=== PATIENT | male | born 1950 | race Caucasian/White ===

== ENCOUNTER 2017-08-04 08:06 | Outpatient (CLI) | payer MEDICARE ==
--- NOTE | 2017-08-04 10:16 | Ultrasound Report ---
AORTA SCREEN: 08/04/2017 CLINICAL INDICATION: Screening. FINDINGS: The abdominal aorta is normal in caliber, measuring 2.2 cm proximally, 2.4 cm in the midportion, and 1.8 cm distally. The iliacs are normal in caliber. No free fluid is present. IMPRESSION: NO EVIDENCE OF ABDOMINAL AORTIC ANEURYSM. TD: 08/04/2017 10:15
== END 2017-08-04 08:07 | disposition home or self-care (01) ==
LOC: DI 08:06
PROVIDERS: ATTEND Family Medicine
DX: Z13.6 Encounter for screening for cardiovascular disorders (principal); R93.1 Abnormal findings on diagnostic imaging of heart and coronary circulation
CPT/HCPCS: 76706

== ENCOUNTER 2017-09-15 09:29 | Outpatient (CLI) | payer MEDICARE ==
--- NOTE | 2017-09-15 10:36 | XRAY Report ---
Procedure Date: 09/15/2017 Accession Number: [id number] / [id number] Procedure: XRS - Chest 2 View X-Ray CPT Code: 88536 FULL RESULT: EXAM: Chest 2 View X-Ray DATE: 09/15/2017 9:41 AM CLINICAL HISTORY: R SIDED CHEST PAIN P X 4WKS, 4TH COSTAL SPACE COMPARISON: 05/31/2014 TECHNIQUE: 2 view chest FINDINGS: The cardiac silhouette is within normal limits. Calcified granuloma in the left midlung is stable. No focal consolidation, effusion, or pneumothorax. IMPRESSION: Normal chest.
== END 2017-09-15 09:30 | disposition home or self-care (01) ==
LOC: DI.S 09:29
PROVIDERS: ATTEND Nurse Practitioner Family
DX: R07.89 Other chest pain (principal)
CPT/HCPCS: 71046

== ENCOUNTER 2020-10-30 11:49 | Outpatient (CLI) | payer MEDICARE, OTHER ==
--- NOTE | 2020-10-30 12:45 | XRAY Report ---
PROCEDURE: Foot 3 View RT INDICATIONS: PAIN OF TOE OF RIGHT FOOT TECHNIQUE: 3 views of the foot were acquired. COMPARISON: None FINDINGS: Bones: No fractures or dislocations. Mild to moderate osteoarthritic changes throughout forefoot mirian ints are seen more prominent at first interphalangeal joint. No gross bony erosive changes are seen. No suspicious bony lesions. Soft tissues: No tibiotalar joint effusion. Achilles tendon appears normal. IMPRESSION: Mild to moderate osteoarthritic changes in forefoot joints more prominent in great toe as above. No f racture or dislocation. No gross bony erosion. Reviewed by: Primo Ross MD on 10/30/2020 12:44 PM PDT Approved by: Primo Ross MD on 10/30/2020 12:44 PM PDT Station ID: [id number]
[2020-10-30 19:52] LABS: BASOPHILS # (AUTO) 0.1 10^3/uL (0.0-0.1); BASOPHILS % (AUTO) 0.5 %; EOSINOPHILS # (AUTO) 0.1 10^3/uL (0.0-0.7); HCT - HEMATOCRIT 36.5 % (42.0-52.0); HGB - HEMOGLOBIN 12.1 g/dL (14.0-18.0); LYMPHOCYTES # (AUTO) 4.9 10^3/uL (1.5-3.5); LYMPHOCYTES % (AUTO) 51.8 %; MEAN CORPUSCULAR HEMOGLOBIN 31.3 pg (27.0-31.0); MEAN CORPUSCULAR HGB CONC 33.2 g/dL (32.0-36.0); MEAN CORPUSCULAR VOLUME 94.6 fL (80.0-94.0); MEAN PLATELET VOLUME 11.3 fL (7.4-11.4); MONOCYTES # (AUTO) 0.6 10^3/uL (0.0-1.0); MONOCYTES % (AUTO) 6.4 %; NEUTROPHILS # (AUTO) 3.8 10^3/uL (1.5-6.6); PLT - PLATELET COUNT 244 10^3/uL (130-450); RED BLOOD COUNT 3.86 10^6/uL (4.70-6.10); RED CELL DISTRIBUTION WIDTH 13.6 % (12.0-15.0); WHITE BLOOD COUNT 9.4 x10^3/uL (4.8-10.8)
[2020-10-30 20:24] LABS: ALBUMIN 4.3 g/dL (3.2-5.5); ALBUMIN/GLOBULIN RATIO 1.8 (1.0-2.2); ALKALINE PHOSPHATASE 38 IU/L (42-121); ALT ALANINE AMINOTRANSFERASE 21 IU/L (10-60); AST ASPARTATE AMINOTRANSFERASE 23 IU/L (10-42); BILIRUBIN,TOTAL 0.9 mg/dL (0.2-1.0); BUN - BLOOD UREA NITROGEN 22 mg/dL (6-20); CALCIUM 9.4 mg/dL (8.5-10.3); CARBON DIOXIDE - CO2 25 mmol/L (21-32); CHLORIDE 103 mmol/L (101-111); CREATININE 0.8 mg/dL (0.6-1.2); CRP - C-REACTIVE PROTEIN < 1.0 mg/dL (0-1.0); GFR - MDRD 95 (>89); GLUCOSE 124 mg/dL (70-100); POTASSIUM 4.1 mmol/L (3.5-5.0); SODIUM 137 mmol/L (135-145); TOTAL PROTEIN 6.7 g/dL (6.7-8.2)
[2020-10-30 20:33] LABS: RHEUMATOID FACTOR NEGATIVE (Negative)
[2020-11-01 12:46] LABS: HEPATITIS C ANTIBODY NON-REACTIVE (NON-REACTIVE)
[2020-11-02 10:56] LABS: ANA SCREEN NEGATIVE (NEGATIVE)
== END 2020-10-30 11:50 | disposition home or self-care (01) ==
LOC: DI.S 11:49
PROVIDERS: ATTEND Nurse Practitioner Family
DX: M79.674 Pain in right toe(s) (principal); M19.071 Primary osteoarthritis, right ankle and foot
CPT/HCPCS: 36415; 80053; 84550; 85025; 85651; 86038; 86140; 86200; 86430; 86803

== ENCOUNTER 2021-01-01 07:11 | Outpatient (CLI) | payer MEDICARE, OTHER ==
--- NOTE | 2021-01-01 08:38 | XRAY Report ---
PROCEDURE: Shoulder 3 View LT INDICATIONS: PAIN OF LEFT SHOULDER JOINT TECHNIQUE: 3 views of the shoulder were acquired. COMPARISON: None. FINDINGS: Bones: No fractures or dislocations. No suspicious bony lesions. Visualized ribs appear intact. S cattered subchondral sclerosis and spurring. Soft tissues: No suspicious soft tissue calcifications. IMPRESSION: Mild degenerative changes. If the patient's pain or other symptoms persist, consider fur ther evaluation with MRI. Reviewed by: Raheem Haywood MD on 01/01/2021 8:36 AM PDT Approved by: Raheem Haywood MD on 01/01/2021 8:36 AM PDT Station ID: [id number]
== END 2021-01-01 07:12 | disposition home or self-care (01) ==
LOC: DI.S 07:11
PROVIDERS: ATTEND Nurse Practitioner Family
DX: M19.012 Primary osteoarthritis, left shoulder (principal)

== ENCOUNTER 2021-01-03 07:29 | Outpatient (CLI) | payer MEDICARE, OTHER ==
[2021-01-03 14:49] LABS: BASOPHILS % (AUTO) 0.5 %; EOSINOPHILS # (AUTO) 0.1 10^3/uL (0.0-0.7); EOSINOPHILS % (AUTO) 0.9 %; HCT - HEMATOCRIT 39.9 % (42.0-52.0); LYMPHOCYTES # (AUTO) 3.9 10^3/uL (1.5-3.5); LYMPHOCYTES % (AUTO) 50.7 %; MEAN CORPUSCULAR HEMOGLOBIN 30.7 pg (27.0-31.0); MEAN CORPUSCULAR HGB CONC 32.6 g/dL (32.0-36.0); MEAN CORPUSCULAR VOLUME 94.1 fL (80.0-94.0); MEAN PLATELET VOLUME 11.5 fL (7.4-11.4); MONOCYTES # (AUTO) 0.4 10^3/uL (0.0-1.0); NEUTROPHILS # (AUTO) 3.3 10^3/uL (1.5-6.6); NEUTROPHILS % (AUTO) 42.8 %; PLT - PLATELET COUNT 223 10^3/uL (130-450); RED BLOOD COUNT 4.24 10^6/uL (4.70-6.10); WHITE BLOOD COUNT 7.8 x10^3/uL (4.8-10.8)
[2021-01-03 15:02] LABS: PSA FREE 0.19 ng/mL (0.16-2.81); PSA TOTAL 1.11 ng/mL (0.000-2.000)
[2021-01-03 16:37] LABS: FOLATE > 49.60 ng/mL (5.90 - >24.8)
--- NOTE | 2021-01-03 16:49 | XRAY Report ---
PROCEDURE: Hip w/Pelvis 2-3V RT INDICATIONS: CONTUSION OF RIGHT HIP TECHNIQUE: AP pelvis with lateral view(s) of the bilateral hip(s). COMPARISON: None. FINDINGS: Bones: No fractures or dislocations. Pelvic ring appears intact. No suspicious bony lesions. Mild bilateral hip osteoarthritis. Soft tissues: The visualized bowel gas pattern is normal. No suspicious soft tissue calcifications. IMPRESSION: No fracture. No acute osseous lesion. If there persistent symptoms or continued clinical concern for pathology, then repeat plain film radiographs (7-10 days) or advanced imaging (CT, MR, bone scan) camila uld be considered for further evaluation. Reviewed by: Meri Gates MD, PhD on 01/03/2021 4:47 PM PDT Approved by: Meri Gates MD, PhD on 01/03/2021 4:47 PM PDT Station ID: [id number]
== END 2021-01-03 07:30 | disposition home or self-care (01) ==
LOC: LAB.S 07:29 → DI.S 07:30
PROVIDERS: ATTEND Nurse Practitioner Family
DX: M16.0 Bilateral primary osteoarthritis of hip (principal); N40.1 Benign prostatic hyperplasia with lower urinary tract symptoms; S70.01XA Contusion of right hip, initial encounter; D53.9 Nutritional anemia, unspecified
CPT/HCPCS: 36415; 82607; 82746; 84153; 84154; 85025

== ENCOUNTER 2021-01-15 10:05 | Outpatient (CLI) | payer MEDICARE, OTHER ==
--- NOTE | 2021-01-15 12:36 | MRI Report ---
PROCEDURE: Shoulder LT W/O INDICATIONS: LEFT SHOULDER PAIN TECHNIQUE: Noncontrast oblique coronal T2 fast spin echo with fat saturation, oblique sagittal T1 spin echo and T2 fast spin echo with fat saturation, axial T1 spin echo and T2 fast spin echo with fat saturation t hrough the shoulder. COMPARISON: None. FINDINGS: Image quality: Excellent. Rotator cuff: Tendinosis and low-grade articular and bursal surface partial-thickness tear involving distal supraspinatus at its insertion on humeral head is seen extending to musculotendinous junction. Distal infraspinatus tendinosis is seen. Distal subscapularis tendinosis is also noted. No full-thic kness rotator cuff tendon rupture. No significant rotator cuff muscle atrophy on sagittal images. Bones and bursae: No bone marrow contusions or fractures. Dicf-rr-dstarjeu acromioclavicular joint a nd glenohumeral joint osteoarthritic changes are seen. Small amount of subacromial subdeltoid bursal fluid is also seen. Capsule and soft tissues: There is fraying of superior anterior labrum at 1 to 2:00 position suggesti ve of superior anterior labral tear. Subtle signal abnormality involving anterior inferior labrum at 5 to 6:00 position is also seen. The glenohumeral ligaments are intact. The long head of the biceps t endon demonstrates normal location and morphology. The rotator interval appears normal, without fibr osis. The coracohumeral ligament is normal in thickness. IMPRESSION: 1. Tendinosis and low-grade articular and bursal surface partial-thickness tear involving distal supr aspinatus extending to musculotendinous junction. Distal infraspinatus and subscapularis tendinosis. No full-thickness rotator cuff tendon rupture. 2. Mild to moderate acromioclavicular joint and glenohumeral joint osteophyte is. Small amount of sub acromial subdeltoid bursal fluid. 3. Suggestion of subtle superior anterior labral tear at 1 to 2:00 position an anterior inferior labr al tear at 5 to 6:00 position. Reviewed by: Primo Ross MD on 01/15/2021 12:35 PM PDT Approved by: Primo Ross MD on 01/15/2021 12:35 PM PDT Station ID: [id number]
== END 2021-01-15 10:06 | disposition home or self-care (01) ==
LOC: DI 10:05
PROVIDERS: ATTEND Nurse Practitioner Family
DX: M75.112 Incomplete rotator cuff tear or rupture of left shoulder, not specified as traumatic (principal); M25.712 Osteophyte, left shoulder; M75.52 Bursitis of left shoulder; R93.6 Abnormal findings on diagnostic imaging of limbs

== ENCOUNTER 2021-09-25 08:00 | Outpatient (CLI) | payer MEDICARE, OTHER ==
--- NOTE | 2021-09-25 16:47 | XRAY Report ---
PROCEDURE: Cervical Spine 2 View INDICATIONS: CERVICALGIA TECHNIQUE: 2 view(s) of the cervical spine were acquired. COMPARISON: None. FINDINGS: Bones: No fractures or dislocations to the C7-T1 level. The lateral masses of C1 appear intact on t he odontoid view. No suspicious bony lesions. There is overall appearance of cervical straightening . Mild multilevel generative disc space narrowing is present. Uncovertebral arthropathy is present. Soft tissues: No prevertebral soft tissue swelling. IMPRESSION: Disc space narrowing as well as uncovertebral arthropathy as above. Reviewed by: Jody Cali MD on 09/25/2021 4:46 PM PDT Approved by: Jody Cali MD on 09/25/2021 4:46 PM PDT Station ID: [id number]
== END 2021-09-25 23:59 | disposition home or self-care (01) ==
LOC: DI.S 08:00
PROVIDERS: ATTEND Nurse Practitioner Family
DX: M47.812 Spondylosis without myelopathy or radiculopathy, cervical region (principal)

== ENCOUNTER 2021-10-10 08:49 | Outpatient (CLI) | payer MEDICARE, OTHER ==
[2021-10-10 15:16] LABS: % IRON SATURATION 9 % (20-50); CREATININE,URINE 101.9 mg/dL; IRON 46 ug/dL (45-182); MICROALBUM/CREATININE RATIO,UR 24.5 ug/mg (<30.0); MICROALBUMIN,URINE 2.5 mg/dL (0-300.0); TOTAL IRON BINDING CAPACITY 496 ug/dL (250-450); TRANSFERRIN 354 mg/dL (180-329)
[2021-10-10 20:15] LABS: ESTIMATED AVERAGE GLUCOSE 128 mg/dL (70-100); HEMOGLOBIN A1c% 6.1 % (4.27-6.07)
== END 2021-10-10 08:50 | disposition home or self-care (01) ==
LOC: LAB.S 08:49
PROVIDERS: ATTEND Nurse Practitioner Family
DX: D50.9 Iron deficiency anemia, unspecified (principal); E11.9 Type 2 diabetes mellitus without complications
CPT/HCPCS: 36415; 82043; 82570; 82728; 83036; 83540; 84466

== ENCOUNTER 2022-07-06 11:56 | Outpatient (CLI) | payer MEDICARE | END 2022-07-06 11:57 | disposition home or self-care (01) | LOC: LAB.S 11:56 | PROVIDERS: ATTEND Physician Assistant Medical | DX: R51.9 Headache, unspecified (principal) | CPT/HCPCS: 36415; 85651; 86140 ==

== ENCOUNTER 2023-10-05 10:08 | Outpatient (CLI) | payer MEDICARE ==
[2023-10-05 14:48] LABS: BASOPHILS # (AUTO) 0.1 10^3/uL (0.0-0.1); BASOPHILS % (AUTO) 0.2 %; HCT - HEMATOCRIT 35.7 % (42.0-52.0); HGB - HEMOGLOBIN 12.2 g/dL (14.0-18.0); LYMPHOCYTES # (AUTO) 9.5 10^3/uL (1.5-3.5); LYMPHOCYTES % (AUTO) 46.3 %; MEAN CORPUSCULAR HEMOGLOBIN 33.2 pg (27.0-31.0); MEAN CORPUSCULAR HGB CONC 34.2 g/dL (32.0-36.0); MONOCYTES # (AUTO) 0.6 10^3/uL (0.0-1.0); MONOCYTES % (AUTO) 2.8 %; NEUTROPHILS # (AUTO) 10.3 10^3/uL (1.5-6.6); NEUTROPHILS % (AUTO) 50.4 %; PLT - PLATELET COUNT 254 10^3/uL (130-450); RED BLOOD COUNT 3.68 10^6/uL (4.70-6.10); RED CELL DISTRIBUTION WIDTH 13.2 % (12.0-15.0); WHITE BLOOD COUNT 20.4 x10^3/uL (4.8-10.8)
[2023-10-05 15:44] LABS: DIFFERENTIAL COMMENT MANUAL=AUTO DIFF; PLATELET ESTIMATE, MANUAL NORMAL (130-450,000) (NORMAL); PLATELET MORPHOLOGY NORMAL APPEARANCE (NORMAL); RBC MORPHOLOGY (MULTIPLE) NORMAL APPEARANCE (NORMAL); WBC MORPHOLOGY (MULTIPLE) 1+ SMUDGE CELLS (NORMAL)
[2023-10-05 16:07] LABS: ALBUMIN 4.2 g/dL (3.2-5.5); ALBUMIN/GLOBULIN RATIO 2.5 (1.0-2.2); BILIRUBIN,TOTAL 0.5 mg/dL (0.2-1.0); CALCIUM 9.3 mg/dL (8.5-10.3); CREATININE 0.6 mg/dL (0.6-1.3); FERRITIN 30.6 ng/mL (23.9-336.2); POTASSIUM 4.3 mmol/L (3.5-4.5); TOTAL PROTEIN 5.9 g/dL (6.4-8.9)
== END 2023-10-05 10:09 | disposition home or self-care (01) ==
LOC: LAB.S 10:08
PROVIDERS: ATTEND Internal Medicine Gastroenterology
DX: K92.1 Melena (principal); R11.0 Nausea; R10.13 Epigastric pain
CPT/HCPCS: 36415; 80053; 82728; 83540; 83690; 84466; 85025

== ENCOUNTER 2023-10-05 11:49 | Outpatient (CLI) | payer MEDICARE | END 2023-10-05 23:59 | disposition critical access hospital (66) | LOC: EMS 11:49 | DX: R42 Dizziness and giddiness (principal); R11.0 Nausea; R19.5 Other fecal abnormalities; R13.10 Dysphagia, unspecified; R52 Pain, unspecified | CPT/HCPCS: A0425; A0429 ==

== ENCOUNTER 2023-10-05 12:20 | Emergency (ER) | payer MEDICARE ==
--- NOTE | 2023-10-05 12:31 | ED Physician Documentation ---
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 Also a variety of arrhythmias on Multaq but no anticoagulation. He does take aspirin. Every 3 years or so he will have an upper endoscopy to monitor his Shetty's and he had that done at the [facility] yesterday. He had several biopsies done. Today he had several dark loose stools and then had some presyncopal episodes. He also had more pain after the procedure yesterday than he is accustomed to having had it done many times. The pain is abating now. PD PAST MEDICAL HISTORY - Past Medical History Past Medical History: Yes Cardiovascular: Coronary artery disease, Arrhythmia GI: Other (barrets) - Present Medications Home Medications: Ambulatory Orders Medication Instructions Recorded Confirmed Amlodipine Besylate [Norvasc] 10 mg PO DAILY 10/05/23 10/05/23 Aspirin EC [Ecotrin] 81 mg PO DAILY 10/05/23 10/05/23 Dronedarone HCl [Multaq] 400 mg PO DAILY 10/05/23 10/05/23 Esomeprazole Magnesium [Nexium 20 mg PO DAILY 10/05/23 10/05/23 24Hr] Metformin HCl [Glumetza] 500 mg PO BID 10/05/23 10/05/23 Metoprolol Tartrate [Lopressor] 100 mg PO BID 10/05/23 10/05/23 Nitroglycerin [Nitrostat] 0.4 mg PO PRN PRN 10/05/23 10/05/23 Rosuvastatin Calcium 40 mg PO DAILY 10/05/23 10/05/23 - Allergies Allergies/Adverse Reactions: Allergies Allergy/AdvReac Type Severity Reaction Status Date / Time codeine Allergy Unknown Verified 10/05/23 12:48 Penicillins Allergy Unknown Verified 10/05/23 12:48 Sulfa (Sulfonamide Allergy Unknown Verified 10/05/23 12:48 Antibiotics) PD ED PE NORMAL - Vitals Vital signs reviewed: Yes - General General: Alert and oriented X 3, No acute distress - Neck Neck: Supple, no meningeal sign, No bony TTP - Cardiac Cardiac: RRR, No murmur - Respiratory Respiratory: No respiratory distress, Clear bilaterally - Abdomen Abdomen: Normal bowel sounds, Soft, Non tender - Back Back: No CVA TTP - Derm Derm: Normal color, Warm and dry - Neuro Neuro: Alert and oriented X 3, Normal speech Results - Vitals Vitals: Vital Signs - 24 hr 10/05/23 12:25 Temperature 36.3 C L Heart Rate 73 Respiratory 16 Rate Blood Pressure 139/73 H O2 Saturation 99 Oxygen O2 Source Room air - EKG (time done) 1238 EKG releavant findings:: EKG personally interpreted by author of this note. Relevant findings are: Rate: Rate (enter#) (66) Rhythm: NSR [place]: Normal Intervals: Normal [place] QRS: Normal Ischemia: Normal ST segments - Labs Labs: Laboratory Tests 10/05/23 10/05/23 10/05/23 12:51 12:51 12:51 WBC 20.2 H RBC 3.41 L Hgb 11.0 L Hct 32.3 L MCV 94.7 H MCH 32.3 H MCHC 34.1 RDW 13.0 Plt Count 233 MPV 10.5 Neut # (Auto) 10.0 H Lymph # (Auto) 9.5 H [place] # (Auto) 0.6 Eos # (Auto) 0.0 Baso # (Auto) 0.0 Absolute Nucleated RBC 0.00 Nucleated RBC % 0.0 Manual Slide Review Indicated RBC Morph Micro Appear 2+ ANISOCYTOSIS PT 13.8 H INR 1.3 H Sodium Potassium Chloride Carbon Dioxide Anion Gap BUN Creatinine Estimated GFR (MDRD) Glucose Calcium Total Bilirubin AST ALT Alkaline Phosphatase Total Protein Albumin Globulin Albumin/Globulin Ratio Blood Type A POSITIVE Blood Type Recheck Antibody Screen NEGATIVE 10/05/23 10/05/23 10/05/23 12:51 13:38 14:45 WBC RBC Hgb 10.4 L Hct 29.9 L MCV MCH MCHC RDW Plt Count MPV Neut # (Auto) Lymph # (Auto) [place] # (Auto) Eos # (Auto) Baso # (Auto) Absolute Nucleated RBC Nucleated RBC % Manual Slide Review RBC Morph Micro Appear PT INR Sodium 136 Potassium 4.4 Chloride 105 Carbon Dioxide 25 Anion Gap 6.0 BUN 51 H Creatinine 0.6 Estimated GFR (MDRD) 132 Glucose 103 Calcium 9.2 Total Bilirubin 0.5 AST 13 ALT 16 Alkaline Phosphatase 29 L Total Protein 5.3 L Albumin 3.8 Globulin 1.5 L Albumin/Globulin Ratio 2.5 H Blood Type Blood Type Recheck A POSITIVE Antibody Screen PD Medical Decision Making - ED course ED course: He presents with presyncope and dark loose stools the day after having upper endoscopy with biopsies. 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 It sounds like he is having an upper GI bleed. His vitals are stable and he appears well. Initial CBC notable for white count of 20,000, he has CLL so that likely explains that. His hemoglobin is 11 and looking at historical labs looks like he runs around 12-13 so this probably would not present a large drop. His BUN is elevated on his CMP which is more suggestive of reabsorption of blood from his GI tract. Subsequently I was able to obtain the results of the clinic draw from this morning at 10:19 AM with a hemoglobin of 12.2 and hematocrit of 35.7. And it 1445 and H&H was 10.4 and 29.9. This demonstrates a persistent drop in his hemoglobin but does seem to be leveling off and as of this writing (3:15 PM) he has had no bowel movements while in the emergency department. He is still a feeling quite dizzy if he gets up, and we will administer some IV fluids and recheck. After some IV fluids he was still feeling woozy, but noted he had not eaten at all today. We gave him some pudding and applesauce after which she was feeling much better. Still no BMs in the emergency department so I think the bleeding has stopped. Departure - Departure Disposition: 01 Home, Self Care Clinical Impression: Upper GI bleed Condition: Good Record reviewed to determine appropriate education?: Yes Instructions: ED Bleed UGI Stable Comments: You were seen today for apparent bleeding probably from the biopsy site from yesterday. You should definitely continue your Nexium and I would do a soft diet tonight. Return if you worsen or start having a lot of black bowel movements again. Follow-up with your primary care physician for recheck of labs in a week or 2 with consideration for iron infusions as you have had in the past if they stay low. Forms: PCP List
[2023-10-05] MEDS: PANTOPRAZOLE 40 MG VIAL IVP STA (12:45)
[2023-10-05 13:00] LABS: BASOPHILS % (AUTO) 0.2 %; HCT - HEMATOCRIT 32.3 % (42.0-52.0); LYMPHOCYTES # (AUTO) 9.5 10^3/uL (1.5-3.5); LYMPHOCYTES % (AUTO) 47.3 %; MEAN CORPUSCULAR HEMOGLOBIN 32.3 pg (27.0-31.0); MEAN CORPUSCULAR HGB CONC 34.1 g/dL (32.0-36.0); MEAN CORPUSCULAR VOLUME 94.7 fL (80.0-94.0); MEAN PLATELET VOLUME 10.5 fL (7.4-11.4); MONOCYTES # (AUTO) 0.6 10^3/uL (0.0-1.0); MONOCYTES % (AUTO) 2.7 %; NEUTROPHILS % (AUTO) 49.5 %; PLT - PLATELET COUNT 233 10^3/uL (130-450); RED BLOOD COUNT 3.41 10^6/uL (4.70-6.10); WHITE BLOOD COUNT 20.2 x10^3/uL (4.8-10.8)
[2023-10-05 13:02] LABS: SLIDE REVIEW? Indicated
[2023-10-05 13:23] LABS: ALBUMIN 3.8 g/dL (3.2-5.5); ALBUMIN/GLOBULIN RATIO 2.5 (1.0-2.2); BILIRUBIN,TOTAL 0.5 mg/dL (0.2-1.0); CALCIUM 9.2 mg/dL (8.5-10.3); CREATININE 0.6 mg/dL (0.6-1.3); INR 1.3 (0.8-1.2); POTASSIUM 4.4 mmol/L (3.5-4.5); PT - PROTHROMBIN TIME 13.8 secs (9.9-12.6); TOTAL PROTEIN 5.3 g/dL (6.4-8.9)
[2023-10-05 13:31] LABS: RBC MORPHOLOGY (MULTIPLE) 2+ ANISOCYTOSIS (NORMAL)
[2023-10-05 14:51] LABS: HCT - HEMATOCRIT 29.9 % (42.0-52.0); HGB - HEMOGLOBIN 10.4 g/dL (14.0-18.0)
[2023-10-05] MEDS: SODIUM CHLORIDE 0.9% 1,000 ML IV STA (15:13)
[2023-10-05 16:49] VITALS: BP 128/61; O2SAT 97
== END 2023-10-05 16:45 | disposition home or self-care (01) ==
LOC: EDUNIT# → ED 12:20
DX: R55 Syncope and collapse (principal); R42 Dizziness and giddiness; K92.1 Melena; C91.10 Chronic lymphocytic leukemia of B-cell type not having achieved remission; Z79.82 Long term (current) use of aspirin
CPT/HCPCS: 36415; 80053; 85014; 85018; 85025; 85610; 86850; 86900; 86901; 93005; 96374; 99284

== ENCOUNTER 2023-10-05 20:00 | Inpatient (IN) | payer MEDICARE ==
[2023-10-05 20:29] LABS: BASOPHILS % (AUTO) 0.2 %; HCT - HEMATOCRIT 26.5 % (42.0-52.0); HGB - HEMOGLOBIN 9.1 g/dL (14.0-18.0); LYMPHOCYTES # (AUTO) 11.4 10^3/uL (1.5-3.5); MEAN CORPUSCULAR HEMOGLOBIN 32.9 pg (27.0-31.0); MEAN CORPUSCULAR HGB CONC 34.3 g/dL (32.0-36.0); MEAN CORPUSCULAR VOLUME 95.7 fL (80.0-94.0); MEAN PLATELET VOLUME 10.3 fL (7.4-11.4); MONOCYTES # (AUTO) 0.7 10^3/uL (0.0-1.0); MONOCYTES % (AUTO) 3.6 %; NEUTROPHILS # (AUTO) 7.8 10^3/uL (1.5-6.6); NEUTROPHILS % (AUTO) 38.9 %; PLT - PLATELET COUNT 214 10^3/uL (130-450); RED BLOOD COUNT 2.77 10^6/uL (4.70-6.10); RED CELL DISTRIBUTION WIDTH 13.2 % (12.0-15.0); WHITE BLOOD COUNT 20.1 x10^3/uL (4.8-10.8)
[2023-10-05] MEDS: SODIUM CHLORIDE 0.9% 1,000 ML IV STA (20:34)
[2023-10-05 20:44] LABS: ALBUMIN 3.6 g/dL (3.2-5.5); ALBUMIN/GLOBULIN RATIO 2.6 (1.0-2.2); BILIRUBIN,TOTAL 0.4 mg/dL (0.2-1.0); CALCIUM 9.1 mg/dL (8.5-10.3); CREATININE 0.6 mg/dL (0.6-1.3); POTASSIUM 4.2 mmol/L (3.5-4.5)
[2023-10-05] MEDS: PANTOPRAZOLE 40 MG VIAL IVP STA (20:52)
--- NOTE | 2023-10-05 20:53 | ED Physician Documentation ---
PD HPI GI BLEED - Stated complaint Stated Complaint: GI/FEVER - Chief complaint Chief Complaint: Abd Pain - History obtained from History obtained from: Patient - Additional information Additional information: Patient is a 73-year-old male with a history of CLL and Shetty's esophagus presenting for evaluation of a GI bleed. Patient had an upper endoscopy yesterday with biopsies taken. He was seen earlier today in the emergency department after having black stools and feeling lightheaded. His evaluation at that time showed slight decrease in his hemoglobin. He was monitored for several hours with no bowel movements here. He was feeling better. His vitals were stable and he had wanted to go home. Upon return home he has had 3 subsequent bowel movements with black stools. He again reports feeling lightheaded and generally unwell. He was feeling feverish at home and checked his temperature and it was 101. He has not taken any antipyretic. He does take baby aspirin and did take that earlier today. He does normally take Nexium.He spoke with his GI physician twice today and was directed back to the emergency department. GI physician feels he likely needs to be in the hospital for further monitoring and may need an upper endoscopy to cauterize the bleeding site.Patient denies cough or congestion. Mild nausea but no vomiting. Review of Systems Constitutional: reports: Fever Cardiac: denies: Chest pain / pressure Respiratory: denies: Dyspnea GI: reports: Abdominal Pain, Bloody / black stool : denies: Dysuria PD PAST MEDICAL HISTORY - Past Medical History Past Medical History: Yes Cardiovascular: Coronary artery disease, Arrhythmia Respiratory: None Neuro: None Endocrine/Autoimmune: None GI: Other : None HEENT: None Psych: None Musculoskeletal: None Derm: None - Present Medications Home Medications: Ambulatory Orders Medication Instructions Recorded Confirmed Amlodipine Besylate [Norvasc] 10 mg PO DAILY 10/05/23 10/05/23 Aspirin EC [Ecotrin] 81 mg PO DAILY 10/05/23 10/05/23 Dronedarone HCl [Multaq] 400 mg PO DAILY 10/05/23 10/05/23 Esomeprazole Magnesium [Nexium 20 mg PO DAILY 10/05/23 10/05/23 24Hr] Metformin HCl [Glumetza] 500 mg PO BID 10/05/23 10/05/23 Metoprolol Tartrate [Lopressor] 100 mg PO BID 10/05/23 10/05/23 Nitroglycerin [Nitrostat] 0.4 mg PO PRN PRN 10/05/23 10/05/23 Rosuvastatin Calcium 40 mg PO DAILY 10/05/23 10/05/23 - Allergies Allergies/Adverse Reactions: Allergies Allergy/AdvReac Type Severity Reaction Status Date / Time codeine Allergy Unknown Verified 10/05/23 20:10 Penicillins Allergy Unknown Verified 10/05/23 20:10 Sulfa (Sulfonamide Allergy Unknown Verified 10/05/23 20:10 Antibiotics) - Social History Does the pt smoke?: No Smoking Status: Never smoker Does the pt drink ETOH?: No Does the pt have substance abuse?: No - Immunizations Immunizations are current?: Yes - POLST Patient has POLST: No PD ED PE NORMAL - General General: Alert and oriented X 3, No acute distress, Well developed/nourished - HEENT HEENT: Atraumatic - Neck Neck: Supple, no meningeal sign - Cardiac Cardiac: RRR, Strong equal pulses - Respiratory Respiratory: No respiratory distress, Clear bilaterally - Abdomen Abdomen: Normal bowel sounds, Soft, Non distended, Other (Mild epigastric tenderness) - Derm Derm: Warm and dry - Neuro Neuro: Alert and oriented X 3, Normal speech Results - Vitals Vitals: Vital Signs - 24 hr 10/05/23 10/05/23 10/05/23 20:02 20:40 20:45 Temperature 36.3 C L 36.9 C Heart Rate 76 81 Respiratory 16 16 Rate Blood Pressure 124/61 139/74 H O2 Saturation 100 99 10/05/23 22:23 Temperature Heart Rate 81 Respiratory 16 Rate Blood Pressure 134/81 H O2 Saturation 99 Oxygen O2 Source Room air - EKG (time done) 2041 EKG releavant findings:: EKG personally interpreted by author of this note. Relevant findings are: Rate 69, normal sinus rhythm, motion artifact in multiple leads, no STEMI - Labs Labs: Laboratory Tests 10/05/23 10/05/23 10/05/23 20:22 20:22 20:22 WBC 20.1 H RBC 2.77 L Hgb 9.1 L Hct 26.5 L MCV 95.7 H MCH 32.9 H MCHC 34.3 RDW 13.2 Plt Count 214 MPV 10.3 Neut # (Auto) 7.8 H Lymph # (Auto) 11.4 H [place] # (Auto) 0.7 Eos # (Auto) 0.0 Baso # (Auto) 0.0 Absolute Nucleated RBC 0.00 Band Neuts % (Manual) Not Reportable Abnorm Lymph % (Manual) Not Reportable Nucleated RBC % 0.0 Neutrophils # (Manual) Not Reportable Lymphocytes # (Manual) Not Reportable Monocytes # (Manual) Not Reportable Eosinophils # (Manual) Not Reportable Basophils # (Manual) Not Reportable Differential Comment MANUAL=AUTO DIFF WBC Morphology 1+ SMUDGE CELLS Platelet Estimate NORMAL (130-450,000) Platelet Morphology NORMAL APPEARANCE RBC Morph Micro Appear NORMAL APPEARANCE Sodium 135 Potassium 4.2 Chloride 105 Carbon Dioxide 24 Anion Gap 6.0 BUN 54 H Creatinine 0.6 Estimated GFR (MDRD) 132 Glucose 196 H Lactic Acid 3.4 H* Calcium 9.1 Total Bilirubin 0.4 AST 11 ALT 14 Alkaline Phosphatase 26 L Total Protein 5.0 L Albumin 3.6 Globulin 1.4 L Albumin/Globulin Ratio 2.6 H Urine Color Urine Clarity Urine pH Ur Specific [place] Urine Protein Urine Glucose (UA) Urine Ketones Urine Occult Blood Urine Nitrite Urine Bilirubin Urine Urobilinogen Ur Leukocyte Esterase Ur Microscopic Review Urine Culture Comments Nasal Adenovirus (PCR) Nasal B. parapertussis DNA (PCR) Nasal Coronavir 229E PCR Nasal Coronavir HKU1 PCR Nasal Coronavir NL63 PCR Nasal Coronavir OC43 PCR Nasal Enterovir/Rhinovir PCR Nasal Influenza B PCR Nasal Influenza A PCR Nasal Parainfluen 1 PCR Nasal Parainfluen 2 PCR Nasal Parainfluen 3 PCR Nasal Parainfluen 4 PCR Nasal RSV (PCR) Nasal B.pertussis DNA PCR Nasal C.pneumoniae (PCR) [place] Human Metapneumo PCR Nasal M.pneumoniae (PCR) Nasal SARS-CoV-2 (PCR) 10/05/23 10/05/23 20:35 21:20 WBC RBC Hgb Hct MCV MCH MCHC RDW Plt Count MPV Neut # (Auto) Lymph # (Auto) [place] # (Auto) Eos # (Auto) Baso # (Auto) Absolute Nucleated RBC Band Neuts % (Manual) Abnorm Lymph % (Manual) Nucleated RBC % Neutrophils # (Manual) Lymphocytes # (Manual) Monocytes # (Manual) Eosinophils # (Manual) Basophils # (Manual) Differential Comment WBC Morphology Platelet Estimate Platelet Morphology RBC Morph Micro Appear Sodium Potassium Chloride Carbon Dioxide Anion Gap BUN Creatinine Estimated GFR (MDRD) Glucose Lactic Acid Calcium Total Bilirubin AST ALT Alkaline Phosphatase Total Protein Albumin Globulin Albumin/Globulin Ratio Urine Color YELLOW Urine Clarity CLEAR Urine pH 6.0 Ur Specific [place] 1.010 Urine Protein NEGATIVE Urine Glucose (UA) 250 H Urine Ketones 15 H Urine Occult Blood NEGATIVE Urine Nitrite NEGATIVE Urine Bilirubin NEGATIVE Urine Urobilinogen 0.2 (NORMAL) Ur Leukocyte Esterase NEGATIVE Ur Microscopic Review NOT INDICATED Urine Culture Comments NOT INDICATED Nasal Adenovirus (PCR) NOT DETECTED Nasal B. parapertussis DNA (PCR) NOT DETECTED Nasal Coronavir 229E PCR NOT DETECTED Nasal Coronavir HKU1 PCR NOT DETECTED Nasal Coronavir NL63 PCR NOT DETECTED Nasal Coronavir OC43 PCR NOT DETECTED Nasal Enterovir/Rhinovir PCR NOT DETECTED Nasal Influenza B PCR NOT DETECTED Nasal Influenza A PCR NOT DETECTED Nasal Parainfluen 1 PCR NOT DETECTED Nasal Parainfluen 2 PCR NOT DETECTED Nasal Parainfluen 3 PCR NOT DETECTED Nasal Parainfluen 4 PCR NOT DETECTED Nasal RSV (PCR) NOT DETECTED Nasal B.pertussis DNA PCR NOT DETECTED Nasal C.pneumoniae (PCR) NOT DETECTED [place] Human Metapneumo PCR NOT DETECTED Nasal M.pneumoniae (PCR) NOT DETECTED Nasal SARS-CoV-2 (PCR) NOT DETECTED PD Medical Decision Making - ED course Complexity details: reviewed results, re-evaluated patient, d/w patient ED course: Patient presenting for evaluation of black stools today. Was seen earlier with noted elevated white count and slight decrease in his hemoglobin but had no BMs during the time he was observed in the ER and is feeling better so was discharged home. Has had subsequent dark tarry stools. CBC, chemistries, lactic, blood cultures were obtained. Significant for hemoglobin of 9.1 which is again decreased from prior labs. White count still at 20,000. Electrolytes reviewed. Lactic is elevated at 3.4. CT chest/abdomen/pelvis obtained given Elevated lactic and WBC. Possible colitis. Discussed with general surgeon who will consult on the patient and admitting hospitalist. Vital signs stable. 2130 - Patient had another bowel movement with tarry stools. Was able to pull up lab work from August with WBC of 10,000. Reports still feeling generally unwell. 2314 - Consulted with Dr. Olmstead, general surgery. Requests medicine to admit. Recommends holding aspirin, continuing with PPI, transfusions as needed. He will see the patient. Departure - Departure Disposition: [facility] DC/Xfer Clinical Impression: GI bleed, Anemia, Lactic acidosis, Leukocytosis, Colitis Condition: Good Discharge Date/Time: 10/06/23 01:30
[2023-10-05 20:57] LABS: PLATELET ESTIMATE, MANUAL NORMAL (130-450,000) (NORMAL); PLATELET MORPHOLOGY NORMAL APPEARANCE (NORMAL); RBC MORPHOLOGY (MULTIPLE) NORMAL APPEARANCE (NORMAL)
[2023-10-05 20:58] LABS: DIFFERENTIAL COMMENT MANUAL=AUTO DIFF; WBC MORPHOLOGY (MULTIPLE) 1+ SMUDGE CELLS (NORMAL)
[2023-10-05] MEDS: ONDANSETRON 4 MG/2 ML VIAL IVP STA (21:23)
[2023-10-05 21:32] LABS: B. PARAPERTUSSIS- RESP PCR PAN NOT DETECTED; B. PERTUSSIS- RESP PCR PANEL NOT DETECTED; C. PNEUMONIAE- RESP PCR PANEL NOT DETECTED; CORONAVIRUS 229E-RESP PCR NOT DETECTED; CORONAVIRUS HKU1-RESP PCR NOT DETECTED; CORONAVIRUS NL63-RESP PCR NOT DETECTED; CORONAVIRUS OC43-RESP PCR NOT DETECTED; HUMAN METAPNEUMOVIRUS NOT DETECTED; INFLUENZA A- RESP PCR PANEL NOT DETECTED; INFLUENZA B - RESP PCR PANEL NOT DETECTED; M. PNEUMONIAE- RESP PCR PANEL NOT DETECTED; PARAINFLUENZA VIRUS 1 NOT DETECTED; PARAINFLUENZA VIRUS 2 NOT DETECTED; PARAINFLUENZA VIRUS 3 NOT DETECTED; PARAINFLUENZA VIRUS 4 NOT DETECTED; RHINOVIRUS/ENTEROVIRUS NOT DETECTED; RSV- RESP PCR PANEL NOT DETECTED; SARS-CoV-2 -RESP PCR PANEL NOT DETECTED
[2023-10-05 21:39] LABS: BILIRUBIN,URINE NEGATIVE (NEGATIVE); GLUCOSE, URINE (UA) 250 mg/dL (NEGATIVE); KETONES,URINE (UA) 15 mg/dL (NEGATIVE); LEUKOCYTE ESTERASE, URINE NEGATIVE (NEGATIVE); NITRITE,URINE NEGATIVE (NEGATIVE); OCCULT BLOOD,URINE NEGATIVE (NEGATIVE); PROTEIN,URINE NEGATIVE (NEGATIVE); UROBILINOGEN,URINE 0.2 (NORMAL) E.U./dL (NORMAL)
[2023-10-05 21:41] LABS: CLARITY,URINE CLEAR (CLEAR)
[2023-10-05] MEDS ORDERED: iohexoL-300 100 ML VIAL ONE (21:43)
[2023-10-05] MEDS: iohexoL-300 100 ML VIAL IVP ONE (21:57)
[2023-10-05] MEDS: METOCLOPRAMIDE 10 MG/2 ML VIAL IVP STA (22:32)
--- NOTE | 2023-10-05 23:06 | CT Report ---
PROCEDURE: Chest W INDICATIONS: fever/WBC CONTRAST: Omni 300, 100mls TECHNIQUE: After the administration of intravenous contrast, a CT scan of the chest was performed. Images were recorded and evaluated at appropriate window settings. Reformats: axial MIP of the chest, coronal and sagittal. For radiation dose reduction, the following was used: automated exposure control, adjustme nt of mA and/or kV according to patient size. COMPARISON: None FINDINGS: Image quality: Diagnostic Lungs and pleura:No dense consolidation or pleural effusion. Mild bibasilar atelectasis. Pulmonary micronodules are seen, follow-up is optional for high-risk patients in one year, for exampl e on image 10 on the right. Granulomas are also present. Mediastinum, heart, and esophagus: Small hiatal hernia. Mild to moderate distal esophageal wall thick ening. No pathologic lymph nodes by size criteria. Prominent precarinal lymph node measures 0.8 cm in short axis Coronary calcifications Chest wall and thyroid: Unremarkable Upper abdomen: Separately dictated Bones: Degenerative changes. IMPRESSION: No dense airspace disease or pleural effusion. Mild to moderate esophageal wall thickening, nonspecific, consider endoscopy correlation. Possible sm all hiatal hernia. Other incidental findings are described above. Reviewed by: Parveen Calix MD on 10/05/2023 11:05 PM PDT Approved by: Parveen Calix MD on 10/05/2023 11:05 PM PDT Station ID: [id number]
--- NOTE | 2023-10-05 23:13 | CT Report ---
PROCEDURE: Abdomen/Pelvis W INDICATIONS: GI bleed/WBC 20/elevated lactic CONTRAST: Omni 300, 100mls TECHNIQUE: After the administration of intravenous contrast, a CT scan of the abdomen and pelvis was performed. Images were recorded and evaluated at appropriate window settings. Reformats: coronal and sagittal. F or radiation dose reduction, the following was used: automated exposure control, adjustment of mA and /or kV according to patient size. COMPARISON: None. FINDINGS: Image quality: Diagnostic Lower chest: Separately dictated Liver: Unremarkable Gallbladder and biliary system: Unremarkable, nondilated Pancreas: No ductal dilation Spleen: Nonenlarged Adrenals: No discrete nodules Kidneys: No solid mass or hydronephrosis Vessels and lymph nodes: Main portal vein is patent. No abdominal aortic aneurysm. Atherosclerotic ca lcifications are seen. Bowel and peritoneum: Stomach is moderately distended. Mild wall thickening of the distal stomach. No small bowel obstruction. There are colonic diverticula. The appendix is nondilated. Mild wall thicke richie of the distal colon. Body wall: Unremarkable Pelvis: There are bladder trabeculations and diverticula. TURP changes. Heterogeneous prostate. These are not well evaluated on CT. Bones: There are degenerative changes. IMPRESSION: No small bowel obstruction. No pathologic ascites or intra-abdominal abscess. Moderately distended stomach. Mild wall thickening of the distal stomach, possibly gastritis. Colonic diverticula are also seen. Mild wall thickening of the distal colon, possibly colitis. Consider endo scopy correlation is setting of GI bleed. No acute abdominopelvic abnormality otherwise Bladder trabeculations and diverticula. Heterogeneous prostate with TURP changes. Consider urinalysis and PSA correlation. Chest findings are separately dictated. Other findings above. Reviewed by: Parveen Calix MD on 10/05/2023 11:12 PM PDT Approved by: Parveen Calix MD on 10/05/2023 11:12 PM PDT Station ID: [id number]
--- NOTE | 2023-10-06 00:09 | HISTORY & PHYSICAL EXAMINATION ---
Chief Complaint - Chief Complaint Chief Complaint: Black stool History of Present Illness - History of Present Illness HPI Comment/Other: Patient is a 73-year-old male with a history of CLL and Shetty's esophagus , HTN, DM2, Hyperlipidemia presenting for evaluation of a GI bleed. Patient had an upper endoscopy yesterday with biopsies taken. He was seen earlier today in the emergency department after having black stools and feeling lightheaded. His evaluation at that time showed slight decrease in his hemoglobin. He was monitored for several hours with no bowel movements here. He was feeling better. His vitals were stable and he had wanted to go home. Upon return home he has had 3 subsequent bowel movements with black stools. He again reports feeling lightheaded and generally unwell. He was feeling feverish at home and checked his temperature and it was 101. He has not taken any antipyretic. He does take baby aspirin and did take that earlier today. He does normally take Nexium.He spoke with his GI physician twice today and was directed back to the emergency department. GI physician feels he likely needs to be in the hospital for further monitoring and may need an upper endoscopy to cauterize the bleeding site.Patient denies cough or congestion. On presenation, Afebrile Labs showed WBC 20, Hb 9.1, lactic acid 3.4 CT abdomen/pelvis showed thickening of wall of stomach and colon In ER, pt was given IV protonix As per ER physician ( Dr Benjamin Heredia) , she consulted surgeon cotton farmworker Pt is admitted due to GI bleed, acute blood loss anemia, Severe sepsis, acute colitis and lactic acidosis History - Past Medical History Cardiovascular: reports: Coronary artery disease, Arrhythmia Respiratory: reports: None Neuro: reports: None Endocrine/Autoimmune: reports: None GI: reports: Other : reports: None HEENT: reports: None Psych: reports: None Musculoskeletal: reports: None Derm: reports: None MRSA Hx?: No - POLST Patient has POLST: No Meds/Allgy - Home Medications Home Medications: Ambulatory Orders Medication Instructions Recorded Confirmed Amlodipine Besylate [Norvasc] 10 mg PO DAILY 10/05/23 10/05/23 Aspirin EC [Ecotrin] 81 mg PO DAILY 10/05/23 10/05/23 Dronedarone HCl [Multaq] 400 mg PO DAILY 10/05/23 10/05/23 Esomeprazole Magnesium [Nexium 20 mg PO DAILY 10/05/23 10/05/23 24Hr] Metformin HCl [Glumetza] 500 mg PO BID 10/05/23 10/05/23 Metoprolol Tartrate [Lopressor] 100 mg PO BID 10/05/23 10/05/23 Nitroglycerin [Nitrostat] 0.4 mg PO PRN PRN 10/05/23 10/05/23 Rosuvastatin Calcium 40 mg PO DAILY 10/05/23 10/05/23 - Allergies Allergies/Adverse Reactions: Allergies Allergy/AdvReac Type Severity Reaction Status Date / Time codeine Allergy Unknown Verified 10/05/23 20:10 Penicillins Allergy Unknown Verified 10/05/23 20:10 Sulfa (Sulfonamide Allergy Unknown Verified 10/05/23 20:10 Antibiotics) Review of Systems - Other Findings Other Findings: 10 points systems were reviewed and were negative except mentioned in HPI Exam - Vital Signs Vital Signs: Vital Signs x48h Temp Pulse Resp BP Pulse Ox 10/05/23 22:23 81 16 134/81 H 99 10/05/23 20:45 36.9 C 10/05/23 20:40 81 16 139/74 H 99 10/05/23 20:02 36.3 C L 76 16 124/61 100 - Physical Exam General Appearance: positive: No acute distress Eyes Bilateral: positive: Normal inspection ENT: positive: ENT inspection nml Neck: positive: Nml inspection Cardiovascular: positive: Regular rate & rhythm Abdomen: positive: Non-tender, Nml bowel sounds, No distention Skin: positive: No rash Extremities: positive: No pedal edema Neurologic/Psychiatric: positive: Oriented x3, Motor nml Conclusion/Plan - Lab Results Fish Bones: 10/05/23 20:22 10/05/23 20:22 - Other Other Results/Comments: A: GI bleed Melena Acute blood loss anemia Severe sepsis Acute colitis Leukocytosis Lactic acidosis HTN DM 2, hyperlipidemia CLL H/O cardiac arrythmias on multaq Plan; Admit in ICU for closer monitoring NPO Start protonix gtt Monitor H/H q6h Transfuse PRBC if hb less than 7.0 As per ER physician ( Dr Heredia), she consulted surgeon cotton farmworker Follow cultures strat NS @ 125 cc/h Start Rocephin and flagyl Check lactic acid q6h Repeat CBC, BMP in am Hold metformin Start sliding scale insulin Cont multaq DVT prophylaxic: SCD Full code Pt is admitted as inpatient as more than 2 midnight stay is expected
[2023-10-06] MEDS ORDERED: cefTRIAXone 1 GM VIAL ONE (00:38)
[2023-10-06] MEDS: cefTRIAXone 1 GM in SODIUM CHLORIDE 0.9% MINIBAG 100 ML IV SCH (00:39)
[2023-10-06] MEDS: metroNIDAZOLE 500 MG/100 ML 500 MG/100 ML BAG IV SCH (00:59)
[2023-10-06] MEDS: INSULIN REGULAR, HUMAN 300 UNIT/3 ML PEN SUBQ SCH (01:28)
[2023-10-06] MEDS: PANTOPRAZOLE 80 MG in SODIUM CHLORIDE 0.9% 100ML 100 ML IV SCH (01:55)
[2023-10-06] MEDS: SODIUM CHLORIDE 0.9% 1,000 ML IV SCH (01:55)
[2023-10-06] MEDS: SODIUM CHLORIDE FLUSH 0.9% 10 ML SYRINGE IVP SCH (01:56)
[2023-10-06] MEDS: ONDANSETRON 4 MG/2 ML VIAL IVP PRN (02:25)
[2023-10-06] MEDS: SODIUM CHLORIDE FLUSH 0.9% 10 ML SYRINGE IVP PRN (02:26)
[2023-10-06 04:32] LABS: CALCIUM, IONIZED 1.12 mmol/L (1.15-1.33); VBG PH 7.472 (7.31-7.41)
[2023-10-06 04:34] LABS: BASOPHILS % (AUTO) 0.2 %; HCT - HEMATOCRIT 20.8 % (42.0-52.0); HGB - HEMOGLOBIN 7.1 g/dL (14.0-18.0); LYMPHOCYTES % (AUTO) 55.5 %; MEAN CORPUSCULAR HEMOGLOBIN 33.2 pg (27.0-31.0); MEAN CORPUSCULAR HGB CONC 34.1 g/dL (32.0-36.0); MEAN CORPUSCULAR VOLUME 97.2 fL (80.0-94.0); MEAN PLATELET VOLUME 10.5 fL (7.4-11.4); MONOCYTES % (AUTO) 3.7 %; NEUTROPHILS % (AUTO) 40.2 %; PLT - PLATELET COUNT 183 10^3/uL (130-450); RED BLOOD COUNT 2.14 10^6/uL (4.70-6.10); RED CELL DISTRIBUTION WIDTH 13.6 % (12.0-15.0); WHITE BLOOD COUNT 19.1 x10^3/uL (4.8-10.8)
[2023-10-06 04:44] LABS: ABNORMAL LYMPHS % (MANUAL) 0 %; BAND NEUTROPHILS % (MANUAL) 0 %
[2023-10-06 04:52] LABS: CALCIUM 8.5 mg/dL (8.5-10.3); CREATININE 0.6 mg/dL (0.6-1.3); MAGNESIUM 1.6 mg/dL (1.7-2.3); POTASSIUM 4.2 mmol/L (3.5-4.5)
[2023-10-06 05:18] LABS: DIFFERENTIAL COMMENT MANUAL DIFFERENTIAL; LYMPHOCYTES % (MANUAL) 68 %; MONOCYTES # (MANUAL) 0.4 10^3/uL (0.0-1.0); NEUTROPHILS # (MANUAL) 5.7 10^3/uL (1.5-6.6); PLATELET ESTIMATE, MANUAL NORMAL (130-450,000) (NORMAL); RBC MORPHOLOGY (MULTIPLE) 1+ HYPOCHROMASIA (NORMAL)
[2023-10-06] MEDS: MAGNESIUM SULFATE 2 GRAM 2 GM/50 ML BAG IV ONE (05:44)
[2023-10-06] MEDS: POTASSIUM PHOSPHATE 15 MMOL in SODIUM CHLORIDE 0.9% 250 ML IV ONE (08:32)
[2023-10-06] MEDS: PANTOPRAZOLE 40 MG VIAL IVP SCH (08:33)
[2023-10-06 09:01] LABS: CALCIUM, IONIZED 1.11 mmol/L (1.15-1.33); VBG PH 7.453 (7.31-7.41)
[2023-10-06 09:04] LABS: HCT - HEMATOCRIT 19.3 % (42.0-52.0); HGB - HEMOGLOBIN 6.5 g/dL (14.0-18.0)
[2023-10-06 09:24] LABS: PARTIAL THROMBOPLASTIN TIME 22.4 secs (24.9-33.3)
[2023-10-06 09:29] LABS: INR 1.3 (0.8-1.2)
--- NOTE | 2023-10-06 10:03 | CONSULTATION NOTE ---
Referring Provider Consult Date: 10/06/23 Chief Complaint - Chief Complaint Chief Complaint: several dark bms History of Present Illness - History Obtained From Records Reviewed: yes History obtained from: pt Exam Limitations: none - History of Present Illness HPI Comment/Other: history barretts/ metaplasia esophagus and EGD 2 days ago with biopsies. multiple dark bms since and now anemic. was taking aspirin. History - Past Medical History Cardiovascular: reports: Coronary artery disease, Arrhythmia Respiratory: reports: None Neuro: reports: None Endocrine/Autoimmune: reports: None GI: reports: Other : reports: None HEENT: reports: None Psych: reports: None Musculoskeletal: reports: None Derm: reports: None MRSA Hx?: No - Past Surgical History General: reports: Appendectomy Ortho: reports: Arthroscopic surgery Cardiovascular: reports: Coronary stent HEENT: reports: Tonsil/Adenoidectomy - POLST Patient has POLST: No Meds/Allgy - Home Medications Home Medications: Ambulatory Orders Medication Instructions Recorded Confirmed Amlodipine Besylate [Norvasc] 10 mg PO DAILY 10/05/23 10/05/23 Aspirin EC [Ecotrin] 81 mg PO DAILY 10/05/23 10/05/23 Dronedarone HCl [Multaq] 400 mg PO DAILY 10/05/23 10/05/23 Esomeprazole Magnesium [Nexium 20 mg PO DAILY 10/05/23 10/05/23 24Hr] Metformin HCl [Glumetza] 500 mg PO BID 10/05/23 10/05/23 Metoprolol Tartrate [Lopressor] 100 mg PO BID 10/05/23 10/05/23 Nitroglycerin [Nitrostat] 0.4 mg PO PRN PRN 10/05/23 10/05/23 Rosuvastatin Calcium 40 mg PO DAILY 10/05/23 10/05/23 - Allergies Allergies/Adverse Reactions: Allergies Allergy/AdvReac Type Severity Reaction Status Date / Time codeine Allergy Unknown Verified 10/05/23 20:10 Penicillins Allergy Unknown Verified 10/05/23 20:10 Sulfa (Sulfonamide Allergy Unknown Verified 10/05/23 20:10 Antibiotics) Exam - Vital Signs Vital Signs: Vital Signs x48h Temp Pulse Resp BP Pulse Ox 10/06/23 08:00 106 H 26 H 140/65 H 96 10/06/23 07:00 82 17 127/58 L 96 10/06/23 06:00 90 23 128/60 99 10/06/23 05:00 93 23 125/53 L 96 10/06/23 04:00 37.1 C 101 H 22 149/60 H 97 10/06/23 03:00 77 18 119/56 L 95 - Physical Exam General Appearance: positive: No acute distress, Alert Eyes Bilateral: positive: PERRL, EOMI Respiratory: positive: No respiratory distress Abdomen: positive: No distention Neurologic/Psychiatric: positive: Oriented x3 Conclusion/Plan - Problem List (1) Upper GI bleed Conclusion/Plan: egd 2 days ago with biopsies for barretts while he was taking aspirin. he appears well; although, he certainly is anemic. we discussed he is unlikely to develop severe life threatening hemorrhage. medical management is recommended. he likely had numerous small biopsies of his distal esophagus. I believe cauterization and placing clips on his distal esophagus would likely cause more harm than good. ok to have clears. he is interested in another opinion by a gi specialist. we discussed no gi specialists on [place]. will follow and consider egd if he appears to be developing more significant bleeding. - Lab Results Fish Bones: 10/06/23 08:48 10/06/23 04:18
--- NOTE | 2023-10-06 10:08 | PHARMACY PROGRESS NOTE ---
- Best Possible Medication History Admit Date and Time: 10/05/23 6874 Processed by: Nursing Medications reviewed in ED?: Yes Medication History completed: Yes Patient Interview: Completed Secondary Source(s): Insurance records ([employer]ONEDAR[employer] CHANGE TO BID FROM DAILY PER PATIENT.) As the person ultimately responsible for medication therapy, providers are able to order a medication from an existing home medication list in [facility] via the "Reconcile Routine" prior to Confirmation of that medication by business support assistant. Such practice is discouraged except when the physician, in their clinical judgment, deems that a medical need exists for a medication without regard to previous use.
--- NOTE | 2023-10-06 11:16 | Discharge Plan ---
Discharge Plan for SNF / LUC - Discharge Plan And Transition Orders Problem Reviewed?: Yes Condition: Good Allergies and Adverse Reactions: Allergies Allergy/AdvReac Type Severity Reaction Status Date / Time codeine Allergy Unknown Verified 10/05/23 20:10 Penicillins Allergy Unknown Verified 10/05/23 20:10 Sulfa (Sulfonamide Allergy Unknown Verified 10/05/23 20:10 Antibiotics) Health Concerns: Mr. Jefferson underwent a upper endoscopy procedure on October 04, 2023. He presented to the emergency room on October 05, [address] [place] [address] with complaints of dizziness and nausea and vomiting. He reported that he had multiple dark stools and several presyncopal episodes. He was observed in the emergency room and then sent home. His inital hemoglobin on presentation to the emergency room was 12.2 and repeat hemoglobin was 11 when he was discharged from the emergency room. He presented to the emergency room several hours later with complaints of lightheadedness and having multiple black stools. He was admitted with a hemoglobin of 9. Dr. Olmstead of general surgery was contacted and he recommended admission to medical service. The patient was evaluated by Dr. Olmstead this morning and he is not comfortable performing a upper endoscopy procedure in a patient with Shetty's esophagus that may need esophageal clips and requests transfer of the patient to a higher level of care. Upon admission to the hospital, patient received 40 mg of pantoprazole intravenously and is currently receiving 40 mg intravenously twice daily. He denies hematemesis and has has had approximately 4 bowel movements since admission. His hemoglobin has decreased from 9 to 7 and an order has been placed for him to receive 1 unit of packed red blood cells. Currently he is hemodynamically stable with a blood pressure of 140/65 and heart rate that ranges between 80 and 106. He denies any dyspnea and oxygen saturations at 96% on room air. He has a history of coronary artery disease and has had 7 stents placed. He reports he has had no problems with his heart and denies any chest pain since he had his stents placed in 2020. He reports he has a history of supraventricular tachycardia and is currently on Multaq. Currently all of Mr. Jefferson's outpatient medications have been withheld. He continues on a pantoprazole drip. He is currently receiving 1 of 2 units of packed red blood cells. His leukocytosis is chronic and secondary to his chronic lymphocytic leukemia. He remains NPO. Mr. Jefferson will be transferred to [facility] for his endoscopy procedure and further workup. Plan of Treatment: Plan of treatment is to transfer patient to a higher level of care for endoscopy procedure. Care Goals: Goal of care is to achieve hemostasis Assessment: In summary Mr. Jefferson is a 73-year-old man who presented to [facility] emergency room with lightheadedness and acute onset of multiple black stool. He underwent a endoscopy on October 04, 2023 and multiple biopsies were taken from the esophagus for evaluation of Shetty's esophagus. Patient is currently having active GI hemorrhage and will be transferred for further care. - SNF / [facility] Transition Orders Admit to (Facility): [facility] Under the care of (Name): Tommy Markham MD Discharge Diagnosis: 1. Gastrointestinal hemorrhage 2. Acute blood loss anemia 3. Chronic lymphocytic leukemia 4. Diabetes mellitus type 2 5. History of supraventricular tachycardia 6. History of coronary artery disease Medicare Certification Statement: I certify that Post Hospital detention care is medically necessary on a continuing basis for any of the conditions for which she/he is receiving care during hospitalization. Notify PCP of admission and forward orders to primary provider for signature. Weight on admission and: Daily Other Notification Orders: Call PCP immediately if patient develops dyspnea, chest pain/tightness or edema. House Bowel Program: No Additional Bowel Program Orders: If no BM after 2 days, nurse may give M.O.M. 30ml PO PRN and/or ducolax Supp 1 P R and/or JILLIAN 250mg P.O., and/or senna 1-2 tabs PO. On day 3 nurse may give repeat above order until residents constipation is resolved. Annual Influenza Vaccine (between Dec 04 and July 03): No Two-step PPD per [facility] [id number] or approved exception documents: No Medication Orders: PLEASE REFER TO THE DISCHARGE MEDICATION LIST. Insulin Orders?: No Follow Up: Follow-up with Dr. Juan Suarez and Javy Silveira as needed.
--- NOTE | 2023-10-06 11:16 | DISCHARGE SUMMARY ---
"Discharge Summary Admit Date: 10/06/23 Discharge Date: 10/06/23 Discharging Provider: Tariq Castellanos Primary Care Provider: Javy Silveira MD Code Status: Attempt Resuscitation Condition at Discharge: Serious Discharge Disposition: 02 Transfer Acute Care Hosp Discharge Facility Name: [facility] - DIAGNOSES Admission Diagnoses: 1. GI bleed 2. Melena 3. Acute blood loss anemia 4. Severe sepsis 5. Acute colitis 6. Leukocytosis 7. Lactic acidosis 8. HTN 9. DM 2, 10. hyperlipidemia 11. CLL 12. H/O cardiac arrythmias on multaq Discharge Diagnoses with Status of Each Condition: 1. Gastrointestinal hemorrhage 2. Acute blood loss anemia 3. Chronic lymphocytic leukemia 4. Diabetes mellitus type 2 5. History of supraventricular tachycardia 6. Coronary Artery Disease - HPI History of Present Illness: Mr. Jefferson underwent a upper endoscopy procedure on October 04, 2023. He presented to the emergency room on October 05, 2023 at [facility] with complaints of dizziness and nausea and vomiting. He reported that he had multiple dark stools and several presyncopal episodes. He was observed in the emergency room and then sent home. His inital hemoglobin on presentation to the emergency room was 12.2 and repeat hemoglobin was 11 when he was discharged from the emergency room. He presented to the emergency room several hours later with complaints of lightheadedness and having multiple black stools. He was admitted with a hemoglobin of 9. Dr. Olmstead of general surgery was contacted and he recommended admission to medical service. The patient was evaluated by Dr. Olmstead this morning and he is not comfortable performing a upper endoscopy procedure in a patient with Shetty's esophagus that may need esophageal clips and requests transfer of the patient to a higher level of care. Upon admission to the hospital, patient received 40 mg of pantoprazole intravenously and is currently receiving 40 mg intravenously twice daily. He denies hematemesis and has has had approximately 4 bowel movements since admission. His hemoglobin has decreased from 9 to 7 and an order has been placed for him to receive 1 unit of packed red blood cells. Currently he is hemodynamically stable with a blood pressure of 140/65 and heart rate that ranges between 80 and 106. He denies any dyspnea and oxygen satur ations at 96% on room air. He has a history of coronary artery disease and has had 7 stents placed. He reports he has had no problems with his heart and denies any chest pain since he had his stents placed in 2020. He reports he has a history of supraventricular tachycardia and is currently on Multaq. Currently all of Mr. Jefferson's outpatient medications have been withheld. He continues on a pantoprazole drip. He is currently receiving 1 of 2 units of packed red blood cells. His leukocytosis is chronic and secondary to his chronic lymphocytic leukemia. He remains NPO. Mr. Jefferson will be transferred to [facility] for his endoscopy procedure and further workup. - CONSULTS | PROCEDURES Consultations: 10/06/2023 General Surgery (Dr. Jaspal Olmstead) - HOSPITAL COURSE Hospital Course: See HPI - ALLERGIES Allergies/Adverse Reactions: Allergies Allergy/AdvReac Type Severity Reaction Status Date / Time codeine Allergy Unknown Verified 10/05/23 20:10 Penicillins Allergy Unknown Verified 10/05/23 20:10 Sulfa (Sulfonamide Allergy Unknown Verified 10/05/23 20:10 Antibiotics) - MEDICATIONS Home Medications: Ambulatory Orders Medication Instructions Recorded Confirmed Amlodipine Besylate [Norvasc] 10 mg PO DAILY 10/05/23 10/05/23 Aspirin EC [Ecotrin] 81 mg PO DAILY 10/05/23 10/05/23 Dronedarone HCl [Multaq] 400 mg PO BID 10/05/23 10/06/23 Esomeprazole Magnesium [Nexium 20 mg PO DAILY 10/05/23 10/05/23 24Hr] Metformin HCl [Glumetza] 500 mg PO BID 10/05/23 10/05/23 Metoprolol Tartrate [Lopressor] 100 mg PO BID 10/05/23 10/05/23 Nitroglycerin [Nitrostat] 0.4 mg PO PRN PRN 10/05/23 10/05/23 Rosuvastatin Calcium 40 mg PO DAILY 10/05/23 10/05/23 Pantoprazole [Protonix inj] 80 mg IV .Q10H ml 10/06/23 - PHYSICAL EXAM AT DISCHARGE General Appearance: positive: No acute distress, Alert Eyes Bilateral: positive: Conjunctivae nml, No scleral icterus Neck: positive: Thyroid nml, No JVD, Trachea midline Respiratory: positive: Other (Good air exchange in all lung [place] no wheezing no crackles.) Cardiovascular: positive: Other (Positive S1-S2 no extra heart sounds) Abdomen: positive: Other (Soft nontender nondistended positive bowel sounds.) Skin: positive: No rash Extremities: positive: Nml appearance, No pedal edema Neurologic/Psychiatric: positive: Oriented x3, Motor nml - LABS Result Diagrams: 10/06/23 08:48 10/06/23 04:18 - FOLLOW UP Follow Up: Follow-up with Dr. Juan Suarez and Javy Silveira as needed."
[2023-10-06] MEDS ORDERED: METOPROLOL 5 MG/5 ML VIAL IVP ONE ×2 (15:30→15:36)
[2023-10-06] MEDS: METOPROLOL 5 MG/5 ML VIAL IVP ONE (15:30)
[2023-10-06] MEDS: METOPROLOL 5 MG/5 ML VIAL IVP PRN (15:44)
[2023-10-06] MEDS ORDERED: METOPROLOL 5 MG/5 ML VIAL IVP SCH (16:00)
[2023-10-06 16:13] VITALS: BP 123/73
[2023-10-06 16:23] VITALS: O2SAT 95
== END 2023-10-06 15:55 | disposition short-term general hospital (02) | DRG 378 ==
LOC: ED 20:00 → MS2 23:48 → ICU 10-06 01:11
PROVIDERS: ADMIT Internal Medicine; ATTEND Internal Medicine
PROC: 30233N1 Transfusion of Nonautologous Red Blood Cells into Peripheral Vein, Percutaneous Approach (ICD-10-PCS; principal; 2023-10-06)
DX: K92.1 Melena (principal); D72.829 Elevated white blood cell count, unspecified; D64.9 Anemia, unspecified; C91.10 Chronic lymphocytic leukemia of B-cell type not having achieved remission; R50.9 Fever, unspecified; Z20.818 Contact with and (suspected) exposure to other bacterial communicable diseases; Z20.822 Contact with and (suspected) exposure to COVID-19; Z20.828 Contact with and (suspected) exposure to other viral communicable diseases; E87.20 Acidosis, unspecified; D62 Acute posthemorrhagic anemia; K52.9 Noninfective gastroenteritis and colitis, unspecified; R55 Syncope and collapse; I10 Essential (primary) hypertension; E11.9 Type 2 diabetes mellitus without complications; E78.5 Hyperlipidemia, unspecified; I25.10 Atherosclerotic heart disease of native coronary artery without angina pectoris; K22.70 Barrett's esophagus without dysplasia; Z95.5 Presence of coronary angioplasty implant and graft; R42 Dizziness and giddiness; Z79.82 Long term (current) use of aspirin; R11.0 Nausea; R10.13 Epigastric pain
CPT/HCPCS: 36415; 71260; 74177; 80048; 80053; 81003; 82330; 82728; 83540; 83605; 83690; 83735; 84100; 84466; 85014; 85018; 85025; 85610; 85730; 86850; 86900; 86901; 86920; 87040; 87150; 87633; 93005; 96361; 96374; 96375; 99284; 99285; J2765; P9016; Q9967; 81001; 87086